=== PATIENT | male | born 1940 | race Caucasian/White ===

== ENCOUNTER 2019-04-26 13:20 | Inpatient (IN) | payer MEDICARE, OTHER ==
[~2019-04-26] VITALS: Ht 177.8 cm; Wt 130.4 kg
[2019-04-26] MEDS ORDERED: ALLO100 PO (14:22)
[2019-04-26] MEDS ORDERED: AMLO5 PO (14:23)
[2019-04-26] MEDS ORDERED: FURO80 PO (14:23)
[2019-04-26] MEDS ORDERED: Glucose4 GM PO (14:24)
[2019-04-26] MEDS ORDERED: INSULANPEN SC (14:25)
[2019-04-26] MEDS ORDERED: LOSARTAN POTASS50 MG PO (14:25)
[2019-04-26] MEDS ORDERED: Xalatan2.5 ML RIGHTEYE (14:25)
[2019-04-26] MEDS ORDERED: METO2.5 PO (14:26)
[2019-04-26] MEDS ORDERED: METO25 PO (14:26)
[2019-04-26] MEDS ORDERED: OMEPRAZOLE MAGN20 MG PO (14:27)
[2019-04-26] MEDS ORDERED: Zocor20 MG PO (14:27)
[2019-04-26] MEDS ORDERED: WARF5 PO (14:28)
[2019-04-26 15:48] LABS: Prothrombin Time Results 38.1 Sec (9.7-11.5)
[2019-04-26 16:02] LABS: International Normalized Ratio 4.08
--- NOTE | 2019-04-26 17:58 | NUR ---
SHIFT SUMMARY PT WAS BROUGHT FROM ER BY [facility] AROUND 1600. PT HAS A R BELOW THE KNEE AMPUTATION, REDNESS AND OPEN WOUNDS ON L LOWER LEG (PICS IN CHART). HE IS CALM AND COOPERATIVE. HE IS A[place] AND HAS NO TEETH BUT PT STATES HE CAN EAT ANYTHING. HAS HIS WHEELCHAIR IN THE CAR. PT STATES NO CHEST PAIN AT THIS TIME. WILL CONTINUE TO MONITOR.
--- NOTE | 2019-04-27 04:21 | NUR ---
SHIFT SUMMARY PT AWAKE, SITTING UP, HF DURING SHIFT REPORT; FAMILY IN RM AT BS. PLEASANT AND CO-OP. NO C/O. [facility]. HX OF A-FIB WITH BBB, ON TELE, HTN, AND IDDM WITH RBKA. REPEAT TROPONIN ONLY SLIGHTLY INCREASED FROM PREVIOUS RESULT. NO C/O PAIN. USES HOME CPAP AT HS WITH 2L O2 AT HS ONLY. PT CAN PIVOT TX FROM BED TO W/C, BUT PAINFUL TO L KNEE; "BONE ON BONE", PER REPORT. LUNGS T/O CTA, BUT DIMINISHED WITH SHALLOW AIR MOVEMENT. PT MORBIDLY OBESE. LLE WITH REDNESS. PICTURES AND MEPILEX PLACED BY DAY RN. COUMADIN HELD YESTERDAY D/T INR 4.08; PT AWARE. CONTINUED TO DENY NEEDS. CALL LT IN REACH. URINAL AT BS. ABLE TO MAKE NEEDS KNOWN.
[2019-04-27 05:45] LABS: Prothrombin Time Results 38.1 Sec (9.7-11.5)
[2019-04-27 06:08] LABS: International Normalized Ratio 4.08
--- NOTE | 2019-04-27 17:24 | NUR ---
SUMMARY PT RESTING QUIETLY IN BED, WAKES EASILY, PT HAD FAMILY IN TO VISIT FOR MOST OF THE DAY, PT HAD THE FIRST PART OF HIS STRESS TEST TODAY, PROMISE WELL, 2ND PART WILL BE TOMORROW, NO CAFFEINE OR CHOCOLATE, VSS, NO ACUTE CHANGES, WILL CONT TO MONITOR
[2019-04-28 05:09] LABS: Hematocrit 39.3 % (37.0-53.0); Mean Corpuscular HGB 33.2 pg (26.0-34.0); Mean Corpuscular HGB Conc 33.1 g/dL (31.5-36.5); Mean Corpuscular Volume 100 fL (80-100); Mean Platelet Volume 12.3 fL (9.1-12.4); Platelet Count 105 K/mm3 (150-400); RDW Coefficient Variation 14.3 % (11.7-14.2); RDW Standard Deviation 52.4 fL (35.1-46.3); Red Blood Cell Count 3.92 M/mm3 (4.30-5.90); White Blood Cell Count 13.78 K/mm3 (4.00-11.30)
[2019-04-28 05:19] LABS: International Normalized Ratio 2.62; Prothrombin Time Results 25.4 Sec (9.7-11.5)
--- NOTE | 2019-04-28 05:36 | NUR ---
SHIFT SUMMARY: TONY IS AOX3, COOPERATIVE AND PLEASANT. VS WNL, ON CONTINUOUS PULSE OX RANGING IN 92-94% WHILE AWAKE, DOES DROP TO LOW 80'S DURING SLEEP. SUPPOSE TO WHERE HIS CPAP BUT HE CONTINUED TO REMOVE IT ALL NIGHT, STATES HE DOES NOT LIKE IT. NC AT 2L WAS PLACED WHICH DID HELP HIM KEEP HIS OXYGEN LEVELS UP. CHEM BG 257. LUNG SOUNDS WITH EXPIRTORY WHEEZES, BRONICAL MOIST RATTLING BUT UNABLE TO COUGH SECREATIONS OUT. HR PER TELE MONITOR RUNNING IN THE HIGH 60'S WITH AFIB AND RIGHT BUNDLE BRANCH BLOCK. NPO AFTER MIDNIGHT FOR THE 2 PORTION OF HIS STRESS TEST. HE WAS ABLE TO TRANSFER WITH 2 PERSON ASSIST TO THE BESIDE COMMODE PIVIOTING ON HIS LEFT LEG. BM NOTED TONIGHT, GOOD YELLOW URINE OUTPUT ALSO NOTED. WOUNDS NOTED TO THE LEFT KHANNA X 2 BOTH VENOUS ULCERS BLISTERS THAT RUPTURED AND NOW HAVE SHALLOW RED OPEN AREAS. VASCULAR CHANGED NOTED TO SKIN AREA, AND REPORTS NUMBNESS.DRESSINGS WAS JUST CHANGED, LIFTED TO CHECK WOUNDS AND REAPPLIED. ALSO HAS SKIN BREAKDOWN IN THE SKIN FOLDS, CLEANSED AND APPLIED NYSTATIN POWDER. IV REMAINED PATENT ALL NIGHT. EDUCATED ON WOUND CARE, SKIN CARE, RESPIRTORY EXERCISES, IMPORTANCE OF CPAP AND PREVENTION MEASURES, ALSO COMMUNITY RESOURCES. MENTIONED TO HIM ABOUT HOME HEALTH AND HE STATES HE PLANS ON GETTING IT WHEN HE DISCHARGES. WILL PASS THIS TO DAY SHIFT RN.
[2019-04-28 06:02] LABS: Bun/Creatinine Ratio 35.5 (12.0-20.0); Calcium, Blood 8.5 mg/dL (8.5-10.1); Creatinine, Blood 3.1 mg/dL (0.60-1.20); Potassium, Blood 3.8 mmol/L (3.5-5.5)
--- NOTE | 2019-04-28 17:41 | NUR ---
SUMMARY PT SITTING UP IN BED EATING DINNER, PT HAD FAMILY IN TO VISIT FOR MOST OF THE DAY, PT HAS BEEN PLEASANT AND COOPERATIVE, PT HAD THE 2ND PORTION OF THE STRESS TEST TODAY, TOLERATED WELL, AWAITING RESULTS AND PLAN, PT HOPEFUL TO GO HOME IN AM, PT'S SPOUSE HAD INDICATED INABILITY TO CARE FOR SPOUSE AT HOME IF HE DID NOT GET HIS STRENGTH BACK, WILL CONT TO MONITOR
[2019-04-29 05:01] LABS: International Normalized Ratio 2.46
--- NOTE | 2019-04-29 05:27 | NUR ---
multiple rt therapy sessions, LS remain crackly and diminished, call light in reach, saline locked, 2L via nc to keep o2 level above 90 when not using cpap and trying to sleep, saline locked, will continue to monitior and treat until SBAR report provided to day shift
--- NOTE | 2019-04-29 18:17 | NUR ---
SHIFT SUMAMRY: NO ACUTE CHANGES TO REPORT THIS SHIFT. PT A&O; CALM AND COOPERATIVE WITH CARE. NO C/O PAIN THIS SHIFT. HX R BKA; PT WHEELCHAIR BOUND AT BASELINE. TELE IN PLACE; AIB c BBB & PVCs @ 64 PER WASTE SPECIALIST; CARDIOLOGY (DR DELGADO) CONSULTED THIS SHIFT. PT HX CKD; NEPHROLOGY (DR KING) CONSULTED THIS SHIFT. WCTM.
[2019-04-30 05:06] LABS: Hematocrit 37.7 % (37.0-53.0); Hemoglobin 12.3 g/dL (13.5-17.5)
[2019-04-30 05:19] LABS: International Normalized Ratio 2.9; Prothrombin Time Results 27.9 Sec (9.7-11.5)
[2019-04-30 05:20] LABS: Albumin, Blood 2.8 g/dL (3.4-5.0); Anion Gap 10 mmol/L (6-16); Blood Urea Nitrogen 135 mg/dL (8-24); Bun/Creatinine Ratio 42.1 (12.0-20.0); CO2, Blood 26 mmol/L (21-32); Calcium, Blood 8.2 mg/dL (8.5-10.1); Chloride, Blood 101 mmol/L (98-108); Creatinine, Blood 3.21 mg/dL (0.60-1.20); Glomerular Filtration Rate 20 (60-); Glucose, Blood 232 mg/dL (70-99); Phosphorus, Blood 4.5 mg/dL (2.5-4.9); Potassium, Blood 3.8 mmol/L (3.5-5.5); Sodium, Blood 137 mmol/L (136-145)
--- NOTE | 2019-04-30 06:39 | NUR ---
a+o, destates if o2 is not running even when at rest, call light in reach, 2L via nc or cpap, saline locked, will continue to monitor and treat until provide SBAR report to returning day shift
--- NOTE | 2019-04-30 19:29 | NUR ---
SHIFT SUMMARY: NO ACUTE CHANGES TO [id number] THIS SHIFT. PT A&O; CALM AND COOPERATIVE WITH CARE. NO C/O PAIN OR NAUSEA THIS SHIFT. CKD STAGE 4; DR KING FOLLOWING PT & OT EVAL & TREAT ORDERED. WCTM.
--- NOTE | 2019-05-01 05:11 | NUR ---
TOBACCO PACKER SUMMARY NO ACUTE CHANGES THIS SHIFT. PT AAOX4 AND VERY PLEASANT. REMAINS ON 2L O2 VIA NC. LUNGS REMAIN A BIT WHEEZY BUT PT STATES HIS BREATHING "IS FEELING A BIT BETTER". USES CPAP AT NIGHT. O2 SATS IN MID 90'S. TELEMETRY SHOWS AFIB 60-70'S ON AVERAGE. PT USING URINAL AT BEDSIDE, COLLECTING FOR 24 HOUR URINE SAMPLE. VSS, WILL CONTINUE TO MONITOR.
[2019-05-01 05:43] LABS: Hematocrit 35.3 % (37.0-53.0); Hemoglobin 11.8 g/dL (13.5-17.5)
[2019-05-01 05:57] LABS: International Normalized Ratio 3.45; Prothrombin Time Results 32.7 Sec (9.7-11.5)
[2019-05-01 06:03] LABS: Albumin, Blood 2.8 g/dL (3.4-5.0); Anion Gap 8 mmol/L (6-16); Blood Urea Nitrogen 137 mg/dL (8-24); Bun/Creatinine Ratio 45.4 (12.0-20.0); CO2, Blood 27 mmol/L (21-32); Calcium, Blood 8.2 mg/dL (8.5-10.1); Chloride, Blood 103 mmol/L (98-108); Creatinine, Blood 3.02 mg/dL (0.60-1.20); Glomerular Filtration Rate 21 (60-); Glucose, Blood 154 mg/dL (70-99); Magnesium, Blood 1.8 mg/dL (1.6-2.4); Phosphorus, Blood 4.2 mg/dL (2.5-4.9); Potassium, Blood 3.5 mmol/L (3.5-5.5); Sodium, Blood 138 mmol/L (136-145)
[2019-05-01 12:59] LABS: Protein, Urine Quantitative 10.4 mg/dL (0.0-11.9)
--- NOTE | 2019-05-01 17:23 | NUR ---
SHIFT SUMMARY PT WORKED WITH P.T. TODAY. NOTED TO BE UNSTEADY WITH TRANSFERS AND SNF TRANSFER RECOMMENDED. PT AGREEABLE AT THIS TIME. FAMILY AT BEDSIDE THIS MORNING WELL WITH PET DOG BROUGHT IN. PT HAS DENIED PAIN OR SOB THROUGH DAY. HAS BEEN ON RA AND CONTINUOUS OXIMETRY NOT BEEPING. USING URINAL WHEN IN BED. NO ACUTE CHANGE THROUGH DAY.
[2019-05-02 05:35] LABS: International Normalized Ratio 3.87; Prothrombin Time Results 36.3 Sec (9.7-11.5)
--- NOTE | 2019-05-02 05:40 | NUR ---
SUMMARY: PT A/OX4, DENIES COMPLAINTS AND CALLS APPROPRIATELY FOR ASSIST. HE HAS A R.BKA SO IS CHAIRBOUND AND IS WEAKER THEN BASELINE. PT AGREES TO SNF UPON D/C AND T/F ASSIST REQUIRED TO BED AND W/C BUT TYPICALLY CAN DO SO INDEPENDENTLY. PT TOLERATES CPAP AT HS W/2L 02 BLEED IN AND BUT REMOVES IT AT TIMES WHILE ASLEEP SO WOULD DESAT TO 80'S% PER CONT BIOX. HE ALSO HAS KNOWN AFIB W/HR OCCASIONALLY DROPPING TO 50'S PER BIOX, NO S/S CARDIAC DISTRESS. PT USES URINAL INDEPENDENTLY. DX TO L.LEG REMAINS C/D/I AND NYSTATIN APPLIED TO YEAST IN PANUS/GROIN. NO ACUTE CHANGES, VSS/AFEBRILE. WCTM/REPORT TO DAY RN.
[2019-05-02 07:17] LABS: Albumin, Blood 2.7 g/dL (3.4-5.0); Anion Gap 9 mmol/L (6-16); Blood Urea Nitrogen 138 mg/dL (8-24); Bun/Creatinine Ratio 49.1 (12.0-20.0); CO2, Blood 25 mmol/L (21-32); Calcium, Blood 8.3 mg/dL (8.5-10.1); Chloride, Blood 107 mmol/L (98-108); Creatinine, Blood 2.81 mg/dL (0.60-1.20); Glomerular Filtration Rate 23 (60-); Glucose, Blood 112 mg/dL (70-99); Phosphorus, Blood 4.1 mg/dL (2.5-4.9); Potassium, Blood 3.6 mmol/L (3.5-5.5); Sodium, Blood 141 mmol/L (136-145)
--- NOTE | 2019-05-02 08:59 | NUR ---
NEIGHBORHOOD PLANNER FROM .. IN TO SEE PT.
--- NOTE | 2019-05-02 15:37 | NUR ---
REPORT CALLED TO ALESHA AT [facility], AWAITING [facility] TRANSPORT AT AROUND [id number]. SPOUSE AND DAUGHTER IN ROOM WITH PT AND NOTIFIED.
--- NOTE | 2019-05-02 16:40 | NUR ---
PT DC'D TO [facility]. VIA [facility] AT [phone].
[2019-05-03 07:12] LABS: ANTIGLOMERULAR BM AB 3 units (0-20)
[2019-05-03 12:06] LABS: M-SPIKE, % Not Observed % (Not Observed); PROTEIN,TOTAL,URINE 6.4 mg/dL (Not Estab.)
[2019-05-03 16:06] LABS: A/G RATIO 1.1 (0.7-1.7); ALBUMIN 2.8 g/dL (2.9-4.4); ALPHA-1-GLOBULIN 0.3 g/dL (0.0-0.4); ALPHA-2-GLOBULIN 0.7 g/dL (0.4-1.0); BETA GLOBULIN 0.7 g/dL (0.7-1.3); GAMMA GLOBULIN 0.9 g/dL (0.4-1.8); GLOBULIN, TOTAL 2.7 g/dL (2.2-3.9); IMMUNOGLOBULIN A, QN, SERUM 178 mg/dL (61-437); IMMUNOGLOBULIN G, QN, SERUM 830 mg/dL (700-1600); IMMUNOGLOBULIN M, QN, SERUM 28 mg/dL (15-143); M-SPIKE Not Observed g/dL (Not Observed); PROTEIN, TOTAL, SERUM 5.5 g/dL (6.0-8.5)
[2019-05-05 16:07] LABS: ANA DIRECT Negative (Negative); ANTIMYELOPEROXIDASE (MPO) ABS <9.0 U/mL (0.0-9.0); ANTIPROTEINASE 3 (PR-3) ABS <3.5 U/mL (0.0-3.5); ATYPICAL PANCA <1:20 titer ({null, Neg:<1:20}); CYTOPLASMIC (C-ANCA) <1:20 titer ({null, Neg:<1:20}); PERINUCLEAR (P-ANCA) <1:20 titer ({null, Neg:<1:20})
== END 2019-05-02 16:36 | DRG 280 ==
LOC: ER 13:20 → MEDS 13:21
PROVIDERS: Internal Medicine Nephrology; ADMIT Internal Medicine
DX: I21.A1 Myocardial infarction type 2 (principal); N17.0 Acute kidney failure with tubular necrosis; N18.3 Chronic kidney disease, stage 3 (moderate); I12.9 Hypertensive chronic kidney disease with stage 1 through stage 4 chronic kidney disease, or unspecified chronic kidney disease; E11.22 Type 2 diabetes mellitus with diabetic chronic kidney disease; Z79.01 Long term (current) use of anticoagulants; G47.33 Obstructive sleep apnea (adult) (pediatric); Z89.511 Acquired absence of right leg below knee; I45.10 Unspecified right bundle-branch block; I25.10 Atherosclerotic heart disease of native coronary artery without angina pectoris; I48.2 Chronic atrial fibrillation; Z99.3 Dependence on wheelchair; E11.649 Type 2 diabetes mellitus with hypoglycemia without coma
CPT/HCPCS: 36415; 71046; 76770; 78452; 80048; 80069; 81050; 82784; 82947; 83516; 83520; 83735; 84156; 84165; 84166; 84484; 85014; 85018; 85027; 85610; 86038; 86256; 86334; 86335; 93005; 93010; 93017; 94640; 94660; 94762; 97161; 97165; 97530; 99285-25; A9500; G0378; J0706; J2785; J7030

== ENCOUNTER 2020-01-30 06:24 | Day surgery (SDC) | payer MEDICARE, OTHER ==
[~2020-01-30] VITALS: Ht 182.9 cm; Wt 119.0 kg
[~2020-01-30 06:24] MED LIST: ALLO100 PO; AMLO5 PO; CALCIUM 600 +1 EAC8 PO; FOLI1 PO; FURO80 PO; Glucose4 GM PO; INSULANPEN SC; LOSARTAN POTASS50 MG PO; METO2.5 PO; METO25 PO; OMEPRAZOLE MAGN20 MG PO; WARF5 PO; Xalatan2.5 ML RIGHTEYE; Zocor20 MG PO
--- NOTE | 2020-01-30 13:49 | NUR ---
DISCHARGE: PT REMAINED A&OX3 AND DENIED ANY PAIN DURING RECOVERY. SITE BANDAGE CHANGED DUE TO A LITTLE BLOOD NOTED. SITE DIME SIZE AMOUNT OF BLOOD NOTED-NO HEMATOMA NOTED UNCHANGED FROM DRESSING CHANGE. VSS. IV DC'D WITH CANULA IN TACT. DISCHARGE PAPERWORK GONE OVER WITH PT AND SPOUSE. PT AND SPOUSE VERBALY STATED THE UNDERSTANDING OF THE DISCHARGE EDUCAITON AND DENIED ANY QUESTIONS AT THIS TIME. PT REQUIRED HELP WITH DRESSING AND TRANSFERED SELF TO WHEELCHAIR. PT WHEELED OUT BY THIS NURSE.
== END 2020-01-30 14:00 | disposition home or self-care (01) ==
LOC: MHTC 06:24
DX: I70.249 Atherosclerosis of native arteries of left leg with ulceration of unspecified site (principal); L97.929 Non-pressure chronic ulcer of unspecified part of left lower leg with unspecified severity; Z88.8 Allergy status to other drugs, medicaments and biological substances
CPT/HCPCS: 37224; 37228; 75625; 75716; 75774; 82947; 85347; 99152; 99153; C1725; C1760; C1769; C1887; C1894; C2623; J1644; J2250; J3010; J7030; J7042; Q9967

== ENCOUNTER 2021-09-25 14:59 | Inpatient (IN) | payer OTHER ==
[~2021-09-25] VITALS: Ht 180.3 cm; Wt 123.0 kg
[~2021-09-25 14:59] MED LIST changes: +LOSA25 PO; -LOSARTAN POTASS50 MG PO
[2021-09-25 15:40] LABS: Hematocrit 37.8 % (37.0-53.0); Hemoglobin 12.2 g/dL (13.5-17.5); Mean Corpuscular HGB 30.3 pg (26.0-34.0); Mean Corpuscular HGB Conc 32.3 g/dL (31.5-36.5); Mean Corpuscular Volume 94 fL (80-100); Platelet Count 141 K/mm3 (150-400); RDW Coefficient Variation 14.9 % (11.7-14.2); RDW Standard Deviation 51.4 fL (35.1-46.3); Red Blood Cell Count 4.02 M/mm3 (4.30-5.90); White Blood Cell Count 14.54 K/mm3 (4.00-11.30)
[2021-09-25 16:04] LABS: Albumin/Globulin Ratio 0.9 (0.8-1.8); Bilirubin, Total 1.1 mg/dL (0.1-1.0); Bun/Creatinine Ratio 33.7 (12.0-20.0); Calcium, Blood 9.5 mg/dL (8.5-10.1); Creatinine, Blood 4.15 mg/dL (0.60-1.20); Globulin, Blood 3.4 g/dL (2.2-4.0); Potassium, Blood 4.8 mmol/L (3.5-5.5); Total Protein, Blood 6.4 g/dL (6.4-8.2)
[2021-09-25] MEDS ORDERED: CALC.25 PO (16:20)
[2021-09-25] MEDS ORDERED: ALOGLIPTIN6.25 M1 PO (16:22)
[2021-09-25] MEDS ORDERED: MEGE40T PO (16:23)
[2021-09-25] MEDS ORDERED: ELIQUIS2.5 MG PO (16:24)
[2021-09-25 16:29] LABS: BASOPHILS PERCENT MAN 0 % (0-2); EOSINOPHILS ABSOLUTE MAN 0.14 K/mm3 (0.00-0.68); EOSINOPHILS PERCENT MAN 1 % (0-6); LYMPHOCYTES % ATYPICAL MANUAL 1 % (0-0); LYMPHOCYTES ABSOLUTE MAN 5.08 K/mm3 (0.84-5.20); LYMPHOCYTES PERCENT MAN 34 % (21-46); MONOCYTES ABSOLUTE MAN 1.01 K/mm3 (0.16-1.47); MONOCYTES PERCENT MAN 7 % (4-13); NEUTROPHILS ABSOLUTE MAN 8.28 K/mm3 (1.96-9.15); SEG NEUTROPHILS PERCENT MAN 57 % (41-73); TOTAL CELLS COUNTED 100
[2021-09-25 17:14] LABS: Influenza A, PCR NEGATIVE (NEGATIVE); Influenza B, PCR NEGATIVE (NEGATIVE); Resp Syncytial Virus, PCR NEGATIVE (NEGATIVE); SARS-Cov-2 (COVID-19) PCR, MMC NEGATIVE (NEGATIVE)
[2021-09-25] MEDS ORDERED: MEGESTROL400 MG/11 PO (17:24)
[2021-09-25] MEDS ORDERED: Hydrocortiso453.6 G1 TOP (17:54)
[2021-09-25] MEDS ORDERED: NYSTATIN15 GM TOP (17:55)
[2021-09-25] MEDS ORDERED: TRIDERM28.4 GM TOP (17:56)
--- NOTE | 2021-09-25 18:42 | NUR ---
SHIFT SUMMARY PT WAS ADMITTED FROM ED AROUND 1814. RM AIR, NO TELE, CHELITA PAIN OR SOB. COMFORTABLE IN RM. PT IS CHAIRBOUND AND TRANSFERS USING A SLING. HE IS ARIGHT SIDED AMPUTEE FROM MID CALF DOWN. WILL CALL AND DISCUSS HOME MEDS AND WOUND CLINIC VISIT FOR LEFT CALF WOUNDS. WILL CONTINUE TO MONITOR
[2021-09-26 05:05] LABS: Hematocrit 36.4 % (37.0-53.0); Hemoglobin 11.7 g/dL (13.5-17.5)
[2021-09-26 05:30] LABS: Albumin, Blood 2.7 g/dL (3.4-5.0); Anion Gap 8 mmol/L (6-16); Blood Urea Nitrogen 140 mg/dL (8-24); Bun/Creatinine Ratio 34.3 (12.0-20.0); CO2, Blood 20 mmol/L (21-32); Calcium, Blood 9.3 mg/dL (8.5-10.1); Chloride, Blood 113 mmol/L (98-108); Creatinine, Blood 4.08 mg/dL (0.60-1.20); Glomerular Filtration Rate 14 (60-); Glucose, Blood 89 mg/dL (70-99); Phosphorus, Blood 4.3 mg/dL (2.5-4.9); Sodium, Blood 141 mmol/L (136-145)
--- NOTE | 2021-09-26 17:05 | NUR ---
SHIFT SUMMARY PATIENT ALERT AND ORIENTED THIS SHIFT. PATIENT CALM AND COOPERATIVE WITH CARE. PATIENT DOWN FOR DIALYSIS CATHETER PLACEMENT EARLY THIS AFTERNOON. PATIENT ALERT UPON ARRIVAL. PATIENT COUGHING APPROXIMATELY 1/2 HOUR AFTER ARRIVAL BACK TO FLOOR. STITCH AT SECONDARY SITE STARTED BLEEDING, PRESSURE APPLIED AND BLEEDING QUICKLY CEASED. PATIENT IS CURRENTLY SLEEPING WITH PLANS FOR DIALYSIS THIS EVENING.
--- NOTE | 2021-09-26 23:13 | NUR ---
CONFUSION PT FOUND c IV ACCESS REMOVED, SMALL AMT OF BLOOD ON HAND AND SHEETS. DRESSING ALSO REMOVED FROM PERMACATH. PT STATING THAT SOMETHING FISHY WAS GOING ON AND HE HAD TO GET EVEERYTHING OUT. PT REORIENTED AND CLEANED UP. FIRE SPRINKLER INSTALLER NOTIFIED TO COME CHECK CONDITION OF PERMACATH. NO ACTIVE BLEEDING AT THIS TIME. WILL CONTINUE TO MONITOR AND EDUCATE PT REGARDING PERMACATH.
[2021-09-27 05:14] LABS: BASOPHILS ABSOLUTE AUTO 0.03 K/mm3 (0.00-0.23); BASOPHILS PERCENT AUTO 0 % (0-2); EOSINOPHILS ABSOLUTE AUTO 0.18 K/mm3 (0.00-0.68); EOSINOPHILS PERCENT AUTO 2 % (0-6); Hemoglobin 11.9 g/dL (13.5-17.5); IMMATURE GRAN ABSOLUTE AUTO 0.04 K/mm3 (0.00-0.10); IMMATURE GRAN PERCENT AUTO 0 % (0-1); LYMPHOCYTES ABSOLUTE AUTO 4.72 K/mm3 (0.84-5.20); LYMPHOCYTES PERCENT AUTO 39 % (21-46); MONOCYTES ABSOLUTE AUTO 1.27 K/mm3 (0.16-1.47); MONOCYTES PERCENT AUTO 11 % (4-13); Mean Corpuscular HGB 30.5 pg (26.0-34.0); Mean Corpuscular HGB Conc 32.2 g/dL (31.5-36.5); Mean Corpuscular Volume 95 fL (80-100); Mean Platelet Volume 11.8 fL (9.1-12.4); NEUTROPHILS ABSOLUTE AUTO 5.85 K/mm3 (1.96-9.15); NEUTROPHILS PERCENT AUTO 49 % (41-73); Platelet Count 131 K/mm3 (150-400); RDW Coefficient Variation 15.2 % (11.7-14.2); RDW Standard Deviation 51.8 fL (35.1-46.3); White Blood Cell Count 12.09 K/mm3 (4.00-11.30)
[2021-09-27 05:26] LABS: Albumin, Blood 2.7 g/dL (3.4-5.0); Anion Gap 9 mmol/L (6-16); Blood Urea Nitrogen 104 mg/dL (8-24); Bun/Creatinine Ratio 31.1 (12.0-20.0); CO2, Blood 23 mmol/L (21-32); Calcium, Blood 9.3 mg/dL (8.5-10.1); Chloride, Blood 111 mmol/L (98-108); Creatinine, Blood 3.34 mg/dL (0.60-1.20); Glomerular Filtration Rate 18 (60-); Glucose, Blood 90 mg/dL (70-99); Magnesium, Blood 1.9 mg/dL (1.6-2.4); Phosphorus, Blood 4.1 mg/dL (2.5-4.9); Potassium, Blood 4.5 mmol/L (3.5-5.5); Sodium, Blood 143 mmol/L (136-145); Troponin I 0.205 ng/mL (0.000-0.040)
--- NOTE | 2021-09-27 06:29 | NUR ---
SHIFT SUMMARY S/P ESRD, A/O X4 THOUGH PT HAD PERIOD OF DISORIENTATION WHEN HE WOKE UP AFTER DIALYSIS JUST AFTER START OF SHIFT, PT PULLED OUT IV ACCESS AND ATTEMPTED TO PULL OUT PERMACATH. PERMACATH WAS EVALUATED BY MILL SUPERVISOR AND REDRESSED, PT EDUCATED ON THE IMPORTANCE OF NOT DOING ANYTHING WITH HIS PERMACATH WHICH WAS JUST PUT IN YESTERDAY DURING DAY SHIFT. PT HAS BEEN A/O SINCE THAT EVENT, VOIDING, 1 BM THIS SHIFT, DENIES PAIN. NO OTHER EVENTS THIS SHIFT. CALL LIGHT IN REACH, WILL CTM AND REPORT TO DAY RN.
[2021-09-27 09:10] LABS: HBSAG SCREEN Negative (Negative); HEP A AB, IGM Negative (Negative); HEP B CORE AB, IGM Negative (Negative); HEP C VIRUS AB <0.1 (0.0-0.9)
--- NOTE | 2021-09-27 16:34 | NUR ---
SHIFT SUMMARY PATIENT DENIES PAIN, NAUSEA, AND SHORTNESS OF BREATH. PATIENT HAD DIALYSIS THIS MORNING. BUMEX ORDER CHANGED PER DR. KING TO 2MG PO ON NON-DIALYSIS DAYS. NEW IV PLACED IN RIGHT WRIST. PATIENT VISITED IN AFTERNOON. PATIENT HAS HAD NO EPISODES OF CONFUSION THIS SHIFT. PATIENT IS EATING AND DRINKING WELL. PATIENT IS PLEASANT AND COOPERATIVE WITH CARE.
[2021-09-28 04:59] LABS: BASOPHILS ABSOLUTE AUTO 0.03 K/mm3 (0.00-0.23); BASOPHILS PERCENT AUTO 0 % (0-2); EOSINOPHILS ABSOLUTE AUTO 0.19 K/mm3 (0.00-0.68); EOSINOPHILS PERCENT AUTO 2 % (0-6); Hematocrit 36.4 % (37.0-53.0); Hemoglobin 11.9 g/dL (13.5-17.5); IMMATURE GRAN ABSOLUTE AUTO 0.04 K/mm3 (0.00-0.10); IMMATURE GRAN PERCENT AUTO 0 % (0-1); LYMPHOCYTES ABSOLUTE AUTO 4.21 K/mm3 (0.84-5.20); LYMPHOCYTES PERCENT AUTO 35 % (21-46); MONOCYTES ABSOLUTE AUTO 1.45 K/mm3 (0.16-1.47); MONOCYTES PERCENT AUTO 12 % (4-13); Mean Corpuscular HGB 30.6 pg (26.0-34.0); Mean Corpuscular HGB Conc 32.7 g/dL (31.5-36.5); Mean Corpuscular Volume 94 fL (80-100); Mean Platelet Volume 11.5 fL (9.1-12.4); NEUTROPHILS ABSOLUTE AUTO 6.28 K/mm3 (1.96-9.15); NEUTROPHILS PERCENT AUTO 52 % (41-73); Platelet Count 116 K/mm3 (150-400); RDW Coefficient Variation 14.9 % (11.7-14.2); RDW Standard Deviation 51.2 fL (35.1-46.3); Red Blood Cell Count 3.89 M/mm3 (4.30-5.90)
--- NOTE | 2021-09-28 05:25 | NUR ---
SHIFT SUMMARY PT ALERT WITH PERIOD OF CONFUSION LATER ON THE SHIFT. HEMODIALYSIS CATH ON PLACE. NO ACUTE DISTRESS DURING SHIFT.
[2021-09-28 06:38] LABS: Albumin, Blood 2.7 g/dL (3.4-5.0); Anion Gap 7 mmol/L (6-16); Blood Urea Nitrogen 75 mg/dL (8-24); Bun/Creatinine Ratio 24.8 (12.0-20.0); CO2, Blood 26 mmol/L (21-32); Chloride, Blood 106 mmol/L (98-108); Creatinine, Blood 3.02 mg/dL (0.60-1.20); Glomerular Filtration Rate 20 (60-); Glucose, Blood 161 mg/dL (70-99); Magnesium, Blood 1.9 mg/dL (1.6-2.4); Phosphorus, Blood 3.5 mg/dL (2.5-4.9); Sodium, Blood 139 mmol/L (136-145)
--- NOTE | 2021-09-28 18:12 | NUR ---
SHIFT SUMMARY PATIENT DENIES PAIN, NAUSEA, AND SHORTNESS OF BREATH. PATIENT HAD SOME CONFUSION THIS MORNING. PATIENT DID NOT KNOW WHERE HE WAS OR WHY HE WAS HERE. PATIENT WANTED TO GO HOME AND TRIED TO GET OUT OF BED. PATIENT REORIENTED TO SITUATION. PATIENT CONFUSION RESOLVED BY MID-AFTERNOON. PATIENT IS A LIFT TRANSFER. PATIENT CBG AT 1630 WAS 73. JUICE WAS GIVEN. PATIENT IS EATING AND DRINKING WELL. PATIENT IS PLEASANT AND COOPERATIVE WITH CARE.
--- NOTE | 2021-09-29 04:43 | NUR ---
SHIFT SUMMARY PT ALERT WITH PERIOD OF CONFUSION. RESTING ON BED. DID NOT TRY TO GET OUT OF BED. DO NOT COMPLAIN OF ANY PAIN. CALL LIGHT WHITIM REACH. KEEP MONITORING
[2021-09-29 05:08] LABS: BASOPHILS ABSOLUTE AUTO 0.03 K/mm3 (0.00-0.23); BASOPHILS PERCENT AUTO 0 % (0-2); EOSINOPHILS ABSOLUTE AUTO 0.18 K/mm3 (0.00-0.68); EOSINOPHILS PERCENT AUTO 1 % (0-6); Hematocrit 39.1 % (37.0-53.0); Hemoglobin 12.4 g/dL (13.5-17.5); Mean Corpuscular HGB 30.2 pg (26.0-34.0); Mean Corpuscular HGB Conc 31.7 g/dL (31.5-36.5); Mean Corpuscular Volume 95 fL (80-100); Mean Platelet Volume 11.9 fL (9.1-12.4); Platelet Count 118 K/mm3 (150-400); RDW Coefficient Variation 15.1 % (11.7-14.2); RDW Standard Deviation 51.8 fL (35.1-46.3); Red Blood Cell Count 4.11 M/mm3 (4.30-5.90); White Blood Cell Count 13.61 K/mm3 (4.00-11.30)
[2021-09-29 05:27] LABS: IMMATURE GRAN ABSOLUTE AUTO 0.05 K/mm3 (0.00-0.10); IMMATURE GRAN PERCENT AUTO 0 % (0-1); LYMPHOCYTES PERCENT AUTO 36 % (21-46); MONOCYTES ABSOLUTE AUTO 1.44 K/mm3 (0.16-1.47); MONOCYTES PERCENT AUTO 11 % (4-13); NEUTROPHILS ABSOLUTE AUTO 7.01 K/mm3 (1.96-9.15); NEUTROPHILS PERCENT AUTO 52 % (41-73)
[2021-09-29 05:50] LABS: Albumin, Blood 2.8 g/dL (3.4-5.0); Anion Gap 7 mmol/L (6-16); Blood Urea Nitrogen 80 mg/dL (8-24); Bun/Creatinine Ratio 24.5 (12.0-20.0); CO2, Blood 27 mmol/L (21-32); Calcium, Blood 9.4 mg/dL (8.5-10.1); Chloride, Blood 107 mmol/L (98-108); Creatinine, Blood 3.27 mg/dL (0.60-1.20); Glomerular Filtration Rate 18 (60-); Glucose, Blood 78 mg/dL (70-99); Magnesium, Blood 1.8 mg/dL (1.6-2.4); Phosphorus, Blood 3.6 mg/dL (2.5-4.9); Potassium, Blood 3.9 mmol/L (3.5-5.5); Sodium, Blood 141 mmol/L (136-145); Thyroid Stimulating Hormone 0.616 uIU/mL (0.360-4.800)
[2021-09-29 06:06] LABS: BASOPHILS PERCENT MAN 0 % (0-2); EOSINOPHILS PERCENT MAN 3 % (0-6); LYMPHOCYTES ABSOLUTE MAN 3.94 K/mm3 (0.84-5.20); LYMPHOCYTES PERCENT MAN 29 % (21-46); MONOCYTES ABSOLUTE MAN 1.22 K/mm3 (0.16-1.47); MONOCYTES PERCENT MAN 9 % (4-13); NEUTROPHILS ABSOLUTE MAN 8.02 K/mm3 (1.96-9.15); SEG NEUTROPHILS PERCENT MAN 59 % (41-73); TOTAL CELLS COUNTED 100
--- NOTE | 2021-09-29 15:33 | NUR ---
Upon receiving a referral for spiritual care, I visit patient. Patient tells me about his medical issues, his family history (son and daughter and exwife he is estranged from) and his [employer] background. patient then had to use the restroom and so I exited. I will continue to attempt to connect with patient at a later time.
--- NOTE | 2021-09-29 17:50 | NUR ---
SHIFT SUMMARY PATIENT IS ALERT AND ORIENTED X3 MILD FORGETFULNESS, AND COOPERATIVE WITH CARE. PATIENT IS ON RA, HAS A RIGHT BKA, AND IS CONTINENT. PATIENT DOES NOT WANT TO BE A BOTHER, THIS NURSE HAS BEEN CHECKING ON THEM AND BRINGING SNACKS. PATIENT HAS A PERMA CATH IN THE RIGHT UPPER CHEST, HAD DIALYSIS THIS AM. PATIENT'S DRESSINGS WERE CHANGED ON THE LEFT LOWER EXTREMITY. PATIENT IS GETTING COVERAGE FOR INSULIN PER SLIDING SCALE THIS EVENING. NO ACUTE CHANGES THIS SHIFT. WILL CONTINUE TO CARE FOR UNTIL REPORT IS GIVEN TO ONCOMING NURSE.
--- NOTE | 2021-09-29 22:39 | NUR ---
AWAKE, VOICED FATIGUE AT HS. TOLERATED MEDS WELL. A/O X 3-4. CALL LIGHT IN REACH
--- NOTE | 2021-09-30 03:10 | NUR ---
STUCCO APPLICATOR SUMMARY HAS BEEN RESTING QUIETLY WITH FEW INTERRUPTIONS SINCE HS AFTER HE WAS RE ORIENTED TO NIGHT TIME VS DAY TIME WHEN HE LOOKED AT THE CLOCK AROUND 10 PM. AND THOUGHT IT WAS AM. CALL LIGHT IN REACH. DRESSINGS INTACT.
[2021-09-30 04:57] LABS: Hematocrit 36.9 % (37.0-53.0); Hemoglobin 11.7 g/dL (13.5-17.5)
[2021-09-30 05:22] LABS: Albumin, Blood 2.7 g/dL (3.4-5.0); Anion Gap 4 mmol/L (6-16); Blood Urea Nitrogen 65 mg/dL (8-24); Bun/Creatinine Ratio 21.8 (12.0-20.0); CO2, Blood 29 mmol/L (21-32); Chloride, Blood 108 mmol/L (98-108); Creatinine, Blood 2.98 mg/dL (0.60-1.20); Glomerular Filtration Rate 20 (60-); Glucose, Blood 91 mg/dL (70-99); Phosphorus, Blood 3.3 mg/dL (2.5-4.9); Potassium, Blood 3.8 mmol/L (3.5-5.5); Sodium, Blood 141 mmol/L (136-145)
--- NOTE | 2021-09-30 12:35 | NUR ---
Patient is sitting on his wheelchair by the doorway of patient's . Because therapeutic alliance is already established, patient tells me about the emotional pain attached to some tragic events that happened in his life, about the good qualities of his spouse, his struggles with people who push sabianist and his own spiritual journey. I normalize patient's experience, celebrate his resilience and ability to overcome against the odds and provide companionship and prayer. Patient responds well and shows signs of an elevated mood. I will continue to remain available to patient and family.
--- NOTE | 2021-09-30 19:00 | NUR ---
Pt is A&O 2-3, FORGETFUL AT TIMES. VSS ON RA. UP WITH LIFT TO WHEELCHAIR. INDEPENDENT IN ROOM WITH WHEELCHAIR. WAITING ON DIALYSIS BED. DIETARY SAW PT TODAY AND ADDED SOME PREFERENCES FOR MEAL TRAYS. CBG WAS 55 IN AM AND WENT UP TO 74 AT RECHECK. HAS REMAINED WNL THE REST OF THE DAY.
--- NOTE | 2021-10-01 04:47 | NUR ---
LOG LOADER HELPER SUMMARY HAS BEEN RESTING QUIETLY WITH FEW INTERRUPTIONS SINCE HS AFTER ASSISTANCE BACK TO BED FROM WHEELCAIR. DIALYSIS CONTINUES PER SCHEDULE. AWAITING PLACEMENT. CALL LIGHT IN REACH
--- NOTE | 2021-10-01 10:10 | NUR ---
SEMGLEE: WHEN VERIFYING PATIENT'S SEMGLEE, NOTED THAT HE HAS HAD SOME LOW BLOOD SUGARS OVER HIS ADMISSION WITH THE CURRENT DOSAGE OF SEMGLEE. DISCUSSED WITH DR. CHOWDHURY. NEW ORDERS. ENTERED.
--- NOTE | 2021-10-01 17:29 | NUR ---
PPTS IS IN BED. TOLERATED DIAYSIS WELL, STILL WAITING FOR DAVITA PLACEMENT. DENIES PAIN/ SOB. HE IS HOPEFUL TO DISCHARGE SOON. WILL CONTINUE TO MONITOR.
--- NOTE | 2021-10-02 06:23 | NUR ---
SHIFT SUMMARY PATIENT HAD NO ACUTE CHANGES. AXOX 2-3 FORGETFUL AND SLOW TO RESPOND. BEDREST. CBG 230. PIV INTACT. PERMA CATH RU CHEST INTACT. VSS/AFEBRILE. DENIES CHEST PAIN, SOB, AND N/V. WCTM
[2021-10-02 06:48] LABS: Albumin, Blood 2.7 g/dL (3.4-5.0); Anion Gap 7 mmol/L (6-16); Blood Urea Nitrogen 65 mg/dL (8-24); Bun/Creatinine Ratio 21.3 (12.0-20.0); CO2, Blood 29 mmol/L (21-32); Chloride, Blood 104 mmol/L (98-108); Creatinine, Blood 3.05 mg/dL (0.60-1.20); Glomerular Filtration Rate 20 (60-); Glucose, Blood 158 mg/dL (70-99); Magnesium, Blood 1.9 mg/dL (1.6-2.4); Phosphorus, Blood 3.2 mg/dL (2.5-4.9); Potassium, Blood 3.8 mmol/L (3.5-5.5); Sodium, Blood 140 mmol/L (136-145)
[2021-10-02 06:51] LABS: Hematocrit 37.1 % (37.0-53.0); Hemoglobin 11.7 g/dL (13.5-17.5)
--- NOTE | 2021-10-02 08:00 | NUR ---
PT LAYING IN BED AWAKE A/OX3, PLEASANT AND COOPERATIVE WITH CARE, FOLLOWS COMMANDS WELL, DENIES PAIN, STATES HE SLEPT WELL, SPEECH IS A BIT DIFF TO UNDERSTAND, LUNGS ARE CLEAR T/O, RESP EVEN AND UNLABORED, NO COUGH NOTED, HRR WITH MURMUR NOTED, NO EDEMA NOTED, RBKA, PP +1 TO LLE, IV SITE IS CLEAR AND PATENT, BTX4 HYPOACTIVE, ABD LARGE SOFT NONTENDER, INCONT OF URINE, ATTENDS IN PLACE, SKIN HAS RASH TO RLE, CREAM AVAILABLE, TURNS SELF IN BED, TAKES PO MEDS WITHOUT DIFF, VAMSI, CALL LIGHT IN REACH.
--- NOTE | 2021-10-02 18:32 | NUR ---
no acute changes this shift. no complaints or needs. did speak to respiratory about a cpap set up for him. call light in reach.
--- NOTE | 2021-10-03 04:02 | NUR ---
SHIFT SUMMARY PATIENT HAD NO ACUTE CHANGES OBSERVED. AXOX 3 AND CONFUSED AT TIMES. RIGHT BKA AND BEDREST. PERMA CATH RU CHEST INTACT. VSS/AFEBRILE. DENIES PAIN, SOB, AND N/V. TAKES MEDICATION WHOLE WITH WATER. CBG 197. CALL LIGHT IN REACH. BED IN LOWEST POSITION. WILL CONTINUE TO MONITOR UNTIL DAY SHIFT NURSE ASSUMES CARE.
[2021-10-03 05:27] LABS: Hematocrit 37.6 % (37.0-53.0); Hemoglobin 12.3 g/dL (13.5-17.5)
[2021-10-03 05:49] LABS: Albumin, Blood 2.8 g/dL (3.4-5.0); Anion Gap 6 mmol/L (6-16); Blood Urea Nitrogen 79 mg/dL (8-24); Bun/Creatinine Ratio 23.3 (12.0-20.0); CO2, Blood 29 mmol/L (21-32); Calcium, Blood 9.3 mg/dL (8.5-10.1); Chloride, Blood 105 mmol/L (98-108); Creatinine, Blood 3.39 mg/dL (0.60-1.20); Glomerular Filtration Rate 18 (60-); Glucose, Blood 149 mg/dL (70-99); Phosphorus, Blood 3.7 mg/dL (2.5-4.9); Potassium, Blood 3.9 mmol/L (3.5-5.5); Sodium, Blood 140 mmol/L (136-145)
--- NOTE | 2021-10-03 16:29 | NUR ---
SHIFT SUMMARY PATIENT DENIED PAIN, NAUSEA, AND SHORTNESS OF BREATH. PATIENT HAD SOME CONFUSION THIS MORNING. PATIENT WANTED TO WALK TO DIALYSIS. PATIENT IS CURRENTLY A LIFT TRANSFER. PATIENT HAD DIALYSIS THIS MORNING. FAMILY VISITED IN AFTERNOON. I CALLED RT ABOUT A CPAP FOR PATIENT. PATIENT HAD BEEN UNABLE TO TOLERATE THE MASK. DR. CHOWDHURY NOTIFIED. NEW ORDERS FOR XANAX 1MG PO AT BEDTIME FOR CPAP TOLERANCE. PATIENT IS EATING AND DRINKING WELL. PATIENT IS PLEASANT AND COOPERATIVE WITH CARE.
--- NOTE | 2021-10-04 03:48 | NUR ---
TONY IS PLEASANT AND ALERT. A GOOD HISTORIAN WITH REGARD TO HIS MEDICAL HX WELL DIAGNOSIS. HE IS CONCERNED THAT HE MAY HAVE TO GO OUT OF TOWN TO GET DIALYSIS IF THIS CURRENT SITUATION CANNOT BE RESOLVED. RIGHT CHEST DIALYSIS CATHETER APPEARS INTACT AND NONTENDER. NO COMPLAINTS OF DISCOMFORT OVERNIGHT
[2021-10-04 04:51] LABS: Hematocrit 37.8 % (37.0-53.0)
[2021-10-04 05:11] LABS: Albumin, Blood 2.7 g/dL (3.4-5.0); Anion Gap 6 mmol/L (6-16); Blood Urea Nitrogen 71 mg/dL (8-24); Bun/Creatinine Ratio 23.1 (12.0-20.0); CO2, Blood 29 mmol/L (21-32); Calcium, Blood 9.3 mg/dL (8.5-10.1); Chloride, Blood 107 mmol/L (98-108); Creatinine, Blood 3.07 mg/dL (0.60-1.20); Glomerular Filtration Rate 20 (60-); Glucose, Blood 133 mg/dL (70-99); Phosphorus, Blood 3.6 mg/dL (2.5-4.9); Potassium, Blood 3.9 mmol/L (3.5-5.5); Sodium, Blood 142 mmol/L (136-145)
--- NOTE | 2021-10-04 14:24 | NUR ---
[facility] referral received due to pt's refusal to use his nasal canula or his CPAP. Biox readings in the 80's withput O2 use and pt noted to be confused in the am without CPAP use. Pt uses CPAP at home. Initially pt verbalized that he understood he may have respiratory distress and resp/cardiac failure if saturations cont to drop and or CO2 level increased. Pt responded that he was not wanting to but he was ok if he when asked. arrived and we reviewed the conversation again. Pt cont to state he doesn't want to utilize his CPAP or O2 but eventually he became agreeable to use his O2 while we further discussed his feelings and concerns. He is clear that he wants to continue dialysis. He denies pain or anxiety. He is demonstrating some anxiety and expressing some distrust/paranoia about "there are some people here who want things to go the other way". He expressed trust in his nurse, me and his . I offered for nurse and I to step out so he could have a private conversation with his but pt did not seem to want that. He was allowed to express himself and in the end was agreeable to me placing his O2 back on. RN in room with pt/ when I left. Report called to . I will revisit tomorrow. I would like to address code/advanced care plans with him when he is adequately oxygenated and clear of mind.
--- NOTE | 2021-10-04 17:37 | NUR ---
SHIFT SUMMARY PT IS SLEEPING UPRIGHT IN BED. HE HAS BEEN LETHARGIC, MORE CONFUSED, AND HALLUCINATING TODAY. DR BELIEVES IT IS RELATED TO PT REFUSING TO WEAR CPAP AT NIGHT. PT WAS ON 3L OF O2 THIS AM AND WAS COMPLAINT FOR A SHORT TIME. PALLIATIVE CAME AND SPOKE TO HIM REGARDING HIS WISHES TO NOT USE O2 OR CPAP WITH SUCH LOW O2 SATS. PT WAS CONFUSED, BUT REPORTED THAT HE DID NOT WANT TO AND HIS CONVINCED HIM TO WEAR HIS CPAP MACHINE. HE IS CURRENTLY WEARING IT AND SATTING 95%. HE IS STILL LETHARGIC AND HARD TO ROUSE FORM A DEEP SLEEP. HE WAS MILDY COMBATIVE EARLIER WHEN DISCUSSING WEARING THE MASK, BUT HAS SINCE CALMED DOWN AND IS COOPERATIVE. WILL CONTINUTE TO MONITOR AND WILL PASS ON INFORMATION TO PERSONAL FINANCIAL COUNSELOR RN.
--- NOTE | 2021-10-04 20:11 | NUR ---
PATIENT CONTINUES TO BE LETHARGIC, HOWEVER, HE IS ALSO REFUSING CPAP, AND WHEN MASK WAS TIGHTENED TO FIT BETTER, PATIENT JUST DISCONNECTED THE HOSE. 02 WAS THEN PLACED IN HIS MOUTH AT 6 LITERS PER NC. SAT INCREASED TO 92-100 BEFORE PULLING IT OFF. SPOKE WITH OVER OUR CONCERNS. SHE IS IN AGREEMENT THAT WE NEED TO FIND A WAY TO KEEP HIM OXYGENATED. DISCUSSED POSSIBLE OPTIONS SHE IS NOT ABLE TO BRING IN HIS CPAP OR STAY ALL NIGHT WITH HIM. PT. STILL REFUSING IV. WRIST RESTRAINTS WOULD BE A LAST RESORT, BUT SHE AGREED THAT IF THIS WAS THE ONLY WAY TO KEEP HIM SAFE, SHE IS VERY SUPPORTIVE
--- NOTE | 2021-10-05 01:15 | NUR ---
PATIENT RESTING IN BED WITH 02 AT 5 LITERS NC IN MOUTH. SPOT SATURATIONS HAVE REMAINED IN THE MID 90'S. STILL REFUSING CPAP. TELE IS AFIB VARYING FROM 40'S TO 80'S WHETHER PATIENT IS AWAKE OR SLEEPING.
[2021-10-05 04:34] LABS: Hematocrit 39.4 % (37.0-53.0); Hemoglobin 12.3 g/dL (13.5-17.5)
[2021-10-05 04:34] LABS: Base Excess Venous 5.3 mmol/L; Bicarbonate Venous 28.3 mmol/L (24.0-30.0); PO2 Venous 80.9 mmHg (38-42); pH Blood Venous 7.41 (7.34-7.37)
[2021-10-05 04:53] LABS: Albumin, Blood 2.6 g/dL (3.4-5.0); Anion Gap 5 mmol/L (6-16); Blood Urea Nitrogen 86 mg/dL (8-24); Bun/Creatinine Ratio 24.8 (12.0-20.0); CO2, Blood 31 mmol/L (21-32); Calcium, Blood 9.4 mg/dL (8.5-10.1); Chloride, Blood 107 mmol/L (98-108); Creatinine, Blood 3.47 mg/dL (0.60-1.20); Glomerular Filtration Rate 17 (60-); Glucose, Blood 135 mg/dL (70-99); Phosphorus, Blood 4.4 mg/dL (2.5-4.9); Potassium, Blood 4.1 mmol/L (3.5-5.5); Sodium, Blood 143 mmol/L (136-145)
--- NOTE | 2021-10-05 13:03 | NUR ---
Case conferenced with pt's bedside RN, and Dialysis unit RN after review of EMR. Plan to call to discuss pt's hx, plan of care, advanced care planning and code status. Pt has cont to experience significant, increasing confusion, delusions, paranoia, turning to agitation and combativeness in the past 24 hours. Will ask if this has occured before with hospital stays or at home. Pt does not have a hx of dementia.
--- NOTE | 2021-10-05 14:25 | NUR ---
Case conferenced with RN again. She had just updated pt's , who is electing not to come in to visit today for fear of agitating pt further if he is wanting to go home. Additional information gathered from RN and I attempted to call as planned. I was unable to reach her by phone and their was no VM available to leave a message. I will cont to try later today and tomorrow to discuss code status, barriers to care, plan of care and advanced care planning.
--- NOTE | 2021-10-05 14:55 | NUR ---
Multiple attempts to reach unsuccessfully at home or cell phone to give an update on declining respiratory and mental status. I did reach Grandson,Alberto, who will call his mom, who is currently with his Grandma-pt's . 's cell with VM is [phone]. VM left for her also. Home # [phone] does not have VM available. Nurse to call Dr with update on changes noted.
--- NOTE | 2021-10-05 15:16 | NUR ---
Change in Code status per 's request and VO obtained from . returned call. Updated her on concerns for pt's declining resp status, increased agitation and combativeness and plan for further w/u. states pt has a POLST and AD at home and that he does not want any life support but did want CPR and also checked "comfort measures only". Discussed oposing goals in pt's choices and that we could not do CPR without life support for f/u care. requests that we cont to try to resolve current issues but requests DNR. Plan made with her to further discuss goals of care and advanced care planning once more diagnostic data/results known. Report to charge accounts audit clerk and Dr. PERDUE obtained for DNR status. to order CT of head. iron launder operator requesting ABG to check for rising CO2 level also. Pt will need to be sedated for testing. RN plans to employ CPAP to manage resp status while pt is sedated or sleeping. verbalized understanding that if pt's status cont to decline as it has over the past 24 hours that his prognosis may be guarded or grim. She states pt has not been diagnosed with dementia and that there is strong family hx of dementia, including his dad. She verbalizes that his chronic health issues have impaired his QOL for some time but that he has been clear headed for the most part prior to this hospital stay.
--- NOTE | 2021-10-05 18:24 | NUR ---
SHIFT SUMMARY PT HAS BEEN AGITATED, CONFUSED AND VIOLENT FOR MOST OF THE DAY. PLACED IN BILATERAL SOFT CUFFS TO PREVENT PT FROM PULLING DIALYSIS CATHETER, NASAL CANULA, AND TELEMETRY. PT CONTINUED TO BE AGGRESSIVE WHILE IN DIALYSIS AND I WAS CALLED DOWN TO MEDICATE HIM SO THEY COULD CONTINUE TREATMENT. HE CONTINUE HIS AGISTATED BEHAVIOR UP UNTIL HE WAS GIVEN MEDICATION TO KEEP HIM CALM BEFORE HIS HEAD CT. PT REMAINED SLEEPING IN HIS ROOM UNTIL FINAL GLUCOSE CHECKS AROUND 1700. HE WAS MEDICATED FOR HYPOGLYCEMIA TWICE HIS FIRST BEING 42 HIS SECOND BEING 46. ISSUE WAS RESOLVED WITH A BLOOD SUGAR OF 95. WILL CONTINUE TO MONITOR.
--- NOTE | 2021-10-05 20:32 | NUR ---
PATIENT CBG 76 AT 1940. CALLS X2 PLACED TO HOSPITALIST. GOLF CLUB WEIGHTER AWARE. AWAITING RETURN CALL FOR ORDER FOR D50/HYPOGLYCEMIA PROTOCOL. PATIENT REFUSING PO MEDS. EXTREMELY CONFUSED. D50 GIVEN X2 EARLIER THIS AFTERNOON FOR CBG'S OF 42 AND 46.
--- NOTE | 2021-10-05 20:47 | NUR ---
CALL RECEIVED. ORDER FOR D5NS AT 50ML/HR GIVEN AND IMPLEMENTED. WILL CONTINUE FREQUENT MONITORING OF BLOOD GLUCOSE
--- NOTE | 2021-10-05 22:51 | NUR ---
CBG AT 2220 WAS 56, PATIENT APPEARS TO BE MORE COGNIZANT OF HIS SURROUNDINGS, EVEN ASKED IF HIS WAS MAD AT HIM FOR HOW HE ACTED TODAY. ALERT ENOUGH TO TAKE FLUID AT THIS MOMENT, FULL CARTON OF CLEAR ENSURE (52 CARBS) WAS TAKEN BY PATIENT WITH THIS RN'S ASSISTANCE. WILL RECHECK CBG IN 15 MINUTES.
--- NOTE | 2021-10-06 05:15 | NUR ---
PATIENT REMAINS IN RESTRAINTS OVERNIGHT. HE WAS TOO LETHARGIC TO SAFELY SWALLOW PILLS AT HS, AND TOO AGITATED PRIOR TO AND AFTER. BLOOD SUGARS FOR THE SHIFT RANGED FROM 76 AT 1940 TO 50 AT HS TO 80 AT 0430. D5NS STILL RUNNING AT 50 ML HR. AT ONE POINT, SATISH WAS ABLE TO DRINK A CLEAR ENSURE WITH 52 GRAMS CARBS, AND 30 MINUTES LATER, HIS CBG WAS 130. HE WAS INCONT OF URINE ONCE, AND JUST AFTER, HE VOIDED 350 ML INTO THE URINAL WITH STAFF ASSIST. STILL HALLUCINATING. STILL RUBBING LEFT HEEL ON THE BED AND PUSHING ON RAILS. 5L NASAL CANNULA MID 90'S
[2021-10-06 05:20] LABS: Hematocrit 39.3 % (37.0-53.0); Hemoglobin 12.2 g/dL (13.5-17.5)
[2021-10-06 05:38] LABS: Albumin, Blood 2.5 g/dL (3.4-5.0); Anion Gap 7 mmol/L (6-16); Blood Urea Nitrogen 67 mg/dL (8-24); Bun/Creatinine Ratio 22.6 (12.0-20.0); CO2, Blood 29 mmol/L (21-32); Chloride, Blood 110 mmol/L (98-108); Creatinine, Blood 2.96 mg/dL (0.60-1.20); Glomerular Filtration Rate 21 (60-); Glucose, Blood 87 mg/dL (70-99); Magnesium, Blood 1.9 mg/dL (1.6-2.4); Phosphorus, Blood 4.3 mg/dL (2.5-4.9); Potassium, Blood 3.8 mmol/L (3.5-5.5); Sodium, Blood 146 mmol/L (136-145)
--- NOTE | 2021-10-06 14:36 | NUR ---
Case conference with pt's RN this am and review of EMR. Pt less confused and not combative today. plans to visit and pt stated to RN that he did not know what happened yesterday but he had some recollection of "being bad" and wanted to apologize to staff and . CT of head negative for acute process. Microvascular disease noted and may be contributing to confusion per PN. Bld glucose levels were low and treated yesterday also. I will try to connect with as planned when she visits today.
--- NOTE | 2021-10-06 16:25 | NUR ---
[facility] visit with and granddaughter visiting. 's mobility is greatly impaired and she reports she hurt her back very badly trying to care for pt the week before admission. She reiterates today that he does not want life support and only wants comfort care measures. Pt remains confused but less agitated today. He has some paranoia about "deyvi on around here". I reviewed the results of the CT of head with when she asked and she again reported pt's family hx of dementia. She states pt had started showing s/s of confusion at home and she hoped dialysis would clear that. states she has had multiple prev back surgeries. She is clear that she can no longer care for pt at home and states he has to go to a detention on d/c. She states she knows he wants to come home but she does not believe that will ever happen again. I left a message for Zenobia in [facility] to update on 's request for assist with buttermilk drier operator placement. states pt is a and that he has medicare but no medicaid. I reviewed medicare's criteria for detention coverage and that they do not cover retirement care. is hopeful that [facility] will have a bed in their "detention" or will pay for one. I asked if pt would want to continue with dialysis if his confusion was a new normal for him and if he would be residing in a LTC facility for the remainder of his life. She said at least three times, "He only wants comfort care and no life support". I gently educated on active tx for renal failure and comfort care were not normally compatible and that dialysis is a prolongation of life in replacing kidney function and a form of life support. Pt's prognosis would be quite limited without the dialysis. wanted me to do a new POLST stating comfort measures only. I asked that she give pt some time to clear and discuss goals of care and wishes with other family since dialysis wouldn't be included in comfort care. agreeable and we planned to discuss again tomorrow.
--- NOTE | 2021-10-06 17:50 | NUR ---
SHIFT SUMMARY PTS MENTATION HAS GREATLY IMPROVED TODAY. RESTRAINTS WERE ABLE TO BE REMOVED THIS AFTERNOON AND PT AGREED TO LEAVE LINES HYUN AND TO NOT THREATEN STAFF OR HIMSELF. HE HE EATEN ALL HIS MEALS AND HAS BEEN ABLE REGAIN CONTROL OF HIS BLOOD SUGAR AGAIN. AND DAUGHTER CAME AND BROUGHT HIS CPAP FROM HOME AND HE IS MORE COMFORTABLE USING IT AGAIN. PALLIATIVE AND WERE BOTH ABLE TO SPEAK TO HIM TODAY AND SEE THE IMRPOVEMENT IN HIS MENTAL STATUS. WILL CONTINEU TO MONITOR.
--- NOTE | 2021-10-06 23:24 | NUR ---
DR HERNADEZ called about PT becoming agitated & removing tele monitor repeatedly. Notify day MD about possible DC of tele to decrease agitation
--- NOTE | 2021-10-07 04:46 | NUR ---
PT is retired [employer] [place] with most of service in [place] . PT unsure who his is but recognizes Granddtrs name. PT with IDDM, ESRD with perm cath placement rt upper chest wall for hemodialysis on 09/26/21. PT had dialysis 09/04/21 & reportedly became very combative while recieving dialysis. DNR status, PT was on tele monitor & he repeatedly removed monitor. informed & surveillance monitor updated. Order to doc refusals & notify day provider of aggitation with monitor. PT has own cpap which has nasal mask & he allowed cpap use intermittantly. He is on oximetry & sats variable can be 93% room air the 83 with EDUIN. Recovers quickly & CPAP helps maintain sat greater than 92%. PT did attempt to climb out of bed when awake but slep well after hs seroquel.Awaiting discharge with need for dialysis chair. Drank 1 glycerna, void x 1 in urinal dark claribel urine.
[2021-10-07 05:33] LABS: Hematocrit 38.5 % (37.0-53.0)
[2021-10-07 05:48] LABS: Albumin, Blood 2.4 g/dL (3.4-5.0); Anion Gap 6 mmol/L (6-16); Blood Urea Nitrogen 80 mg/dL (8-24); Bun/Creatinine Ratio 25.3 (12.0-20.0); CO2, Blood 28 mmol/L (21-32); Calcium, Blood 9.3 mg/dL (8.5-10.1); Chloride, Blood 109 mmol/L (98-108); Creatinine, Blood 3.16 mg/dL (0.60-1.20); Glomerular Filtration Rate 19 (60-); Glucose, Blood 223 mg/dL (70-99); Phosphorus, Blood 4.3 mg/dL (2.5-4.9); Potassium, Blood 4.3 mmol/L (3.5-5.5); Sodium, Blood 143 mmol/L (136-145)
--- NOTE | 2021-10-07 15:01 | NUR ---
Case conference with pt's RN. has not been in yet today. POLST completed, reviewed with RN and put at door way for Dr signature per 's request yesterday. Advanced care planning and quality of life conversations to continue when possible. Pt's confusion remains persistent and he is frequently pulling telemetry pads off, pulling at O2 and pulling CPAP off per RN notes and update from RN. He was asleep both times I came by and I did not disturb him. No visitors at this time.
--- NOTE | 2021-10-07 16:35 | NUR ---
Met with outside of pt's room, while staff cleaning pt up after large episode of diarrhea. is sitting in a wheel chair. tells me that she has contacted multiple family members since we last spoke yesterdy and that she wants us, and family in support of transitioning pt to comfort care at this time. I clarified if they also wanted dialysis discontinued and the stated they did not want any further dialysis. She stated she could see how miserable pt was, "out of his mind" and that he would not want to continue if he was clear and understood he could not come back home and that his life would consist of living in a facility and doing dialysis numerous times per week. We reviewed this further with plan to contact Dr and obtain orders for comfort care, which I did. I updated pt's RN and screeners so multiple family members would be allowed in to visit. Hospice order entered in case pt is able to be discharged to a facility with hospice support or the [place] hospice unit. very appreciative of the support and assist t/o this very difficult past week, with her experiencing a huge decline physically and mentally. [facility] to cont to follow for s/s management and support to pt//family and staff.
--- NOTE | 2021-10-07 17:21 | NUR ---
PT AOX3 AND COOPERATIVE OF CARE TODAY. PT WAS DOWN TO DIALYSIS TODAY AND LATER CAME BACK TO ROOM. PT HAD MULTIPLE LOOSE BOWEL MOVEMENTS AND DR UMANA WAS NOTIFIED AND ADDED MEDICATION TO EMAR. PT LATER WAS MOVED TO COMFORT CARE AND IS COMFORTABLE AT THIS TIME. CALL LIGHT IS WITHIN REACH WILL CONTINUE TO MONITOR.
--- NOTE | 2021-10-08 01:01 | NUR ---
PT denies pain or unmet needs, started on comfort care yesterday. PT has moderate confusion but no agression. [employer] [place] retired doesn't know Wifes name & begins discussion about his Parents passing away. Asks what will happen to rt chest dialysis cath? Discussed Hospice referral. PT says he usually can move himself on & off toilet transfer from without appliance or prothesis for RT BKA. Obese, needs 2 assist & cues to roll side to side to change depends.
--- NOTE | 2021-10-08 06:05 | NUR ---
calm cooperative , denies unmet needs. Drank supplement earlier & used urinal x 2 thsi shift. Room air PT declined CPAP, has his own cpap set up at bedside.
--- NOTE | 2021-10-08 18:23 | NUR ---
PT AOX3 AND COOPERATIVE OF CARE. PT HAS BEEN COMFORTABLE AND SLEEPING MOST OF THE DAY. PT DID GET A LITTLE UPSET WHEN HIS TOLD HIM HE WOULD NOT BE GOING HOME. PT TREATED FOR ANXIETY PER EMAR AND THIS WAS EFFECTIVE. HE WAS MUCH HAPPIER LATER IN THE DAY AND WAS EVEN LAUGHING. PT TURNED EVERY COUPLE HOURS AND IS INCONTENT OF URINE AND BOWEL. NO DISTRESS NOTED AT THIS TIME.
--- NOTE | 2021-10-09 01:29 | NUR ---
oxygen applied for dyspnea PT declines CPAP
--- NOTE | 2021-10-09 06:42 | NUR ---
PT to Dc home on Wednesday with [facility]. PT reportedly had agitation on day shift medicated for anxiety. Medicted x 1 for air hunger EDUIN with helpful effect
--- NOTE | 2021-10-09 09:30 | NUR ---
Comfort care visit. Fredy is currently sleeping. He appears to be comfortable at this time. Spoke with nursing who reports no concerns at this time. Plan is for pt to discharge to the [facility] at the [place] on Wednesday10/10/21. Did not disturb patient during this visit.
--- NOTE | 2021-10-09 17:49 | NUR ---
SHIFT SUMMARY PATIENT STARTED THE SHIFT TRYING TO GET OUT OF BED FREQUENTLY. MEDICATED WITH ATIVAN FOR ANXIETY AND PATIENT WISHING TO SLEEP. PATIENT HAS BEEN RESTING FOR MOST OF THE DAY WITH NO ISSUES. NO ACUTE EVENTS THIS SHIFT. CALL LIGHT IN PLACE. BED IN LOWEST POSITION. WILL MONITOR UNTIL CUPOLA OPERATOR.
--- NOTE | 2021-10-09 17:56 | NUR ---
SHIFT SUMMARY PATIENT IS ON COMFORT CARE. COMFORT CARE MEASURES DONE Q2. PATIENT HAS BEEN COMFORTABLE AND SLEEPING MOST OF THE SHIFT. PATIENT ONLY GETS AGITATED WHEN CHANGING BRIEF AND BED CHANGES, OTHERWISE RESTING PEACEFULLY. PATIENT HAS NOT NEEDED ANY MEDICATION FOR ANXIETY, PAIN OR ANY OTHER NEEDS THIS SHIFT. FAMILY VISITED FOR A LITTLE WHILE AND SAT AND TALKED WITH THEM TO PROVIDE THERAPEUTIC COMMUNICATION TO FAMILY AND PATIENT. WILL MONITOR UNTIL SHIFT CHANGE.
[2021-10-10 02:12] LABS: SARS-Cov-2 (COVID-19) PCR, MMC NEGATIVE (NEGATIVE)
--- NOTE | 2021-10-10 04:48 | NUR ---
SHIFT SUMMARY PT IS DISCHARGING TO [facility] THIS AM. NO ACUTE CHANGES ON THIS SHIFT. COOPERATIVE WITH CARE. PT HAS NO NEED FOR ANXIETY MEDS ON THIS SHIFT. ADLS PROVIDED, SAFETY MEASURES IN PLACE. WILL CONTINUE TO MONITOR.
[2021-10-10] MEDS ORDERED: ATROPINE SULFATE2 M1 SL (08:36)
[2021-10-10] MEDS ORDERED: MORP20L SL (08:44)
[2021-10-10] MEDS ORDERED: Ativan1 MG PO (08:44)
[2021-10-10] MEDS ORDERED: TRANSDERM-SCOP1 EAC1 TD (08:45)
--- NOTE | 2021-10-10 11:28 | NUR ---
SHIFT SUMMARY PATIENT IS ALERT AND ORIENTED X1-2. PATIENT HAS BEEN MORE ALERT TODAY VERSUS PREVIOUS SHIFTS. NO ACUTE EVENTS THIS SHIFT. PATIENT WAS TRANSFERRED TO [facility] BY TRANSPORT. ALL BELONGS WERE TRANSFERRED WITH PATIENT.
== END 2021-10-10 10:30 | DRG 673 ==
LOC: ER 14:59 → MEDS 15:00 → ENPENDDIS 10-10 09:20 → MEDS 10-10 10:30
PROVIDERS: Emergency Medicine; Family Medicine; Internal Medicine; Internal Medicine Nephrology; Physician Assistant; ADMIT Internal Medicine
PROC: 3E02340 Introduction of Influenza Vaccine into Muscle, Percutaneous Approach (ICD-10-PCS; 2021-09-25)
PROC: 02HV33Z Insertion of Infusion Device into Superior Vena Cava, Percutaneous Approach (ICD-10-PCS; principal; 2021-09-26)
PROC: B518YZA Fluoroscopy of Superior Vena Cava using Other Contrast, Guidance (ICD-10-PCS; 2021-09-26)
PROC: 5A1D70Z Performance of Urinary Filtration, Intermittent, Less than 6 Hours Per Day (ICD-10-PCS; 2021-09-26)
PROC: 0JH63XZ Insertion of Tunneled Vascular Access Device into Chest Subcutaneous Tissue and Fascia, Percutaneous Approach (ICD-10-PCS; 2021-09-26)
PROC: B548ZZA Ultrasonography of Superior Vena Cava, Guidance (ICD-10-PCS; 2021-09-26)
DX: N17.9 Acute kidney failure, unspecified (principal); G92.8 Other toxic encephalopathy; E87.2 Acidosis; I48.21 Permanent atrial fibrillation; E87.0 Hyperosmolality and hypernatremia; N18.6 End stage renal disease; E11.22 Type 2 diabetes mellitus with diabetic chronic kidney disease; Z20.822 Contact with and (suspected) exposure to COVID-19; Z99.2 Dependence on renal dialysis; I48.91 Unspecified atrial fibrillation; G47.33 Obstructive sleep apnea (adult) (pediatric); Z51.5 Encounter for palliative care; Z90.49 Acquired absence of other specified parts of digestive tract; Z89.511 Acquired absence of right leg below knee; Z79.899 Other long term (current) drug therapy; I48.0 Paroxysmal atrial fibrillation; I25.10 Atherosclerotic heart disease of native coronary artery without angina pectoris; D64.9 Anemia, unspecified; E88.09 Other disorders of plasma-protein metabolism, not elsewhere classified; E87.5 Hyperkalemia; Z23 Encounter for immunization
CPT/HCPCS: 0241U; 36415; 36558; 70450; 71045; 76770; 76937; 77001; 80053; 80069; 80074; 82803; 82947; 83735; 83880; 84132; 84443; 84484; 85014; 85018; 85025; 86317; 94660; 94760; 94762; 99152; 99153; 99285-25; A9270; C1750; C1769; C1894; G0378; J1644; J1815; J2060; J2250; J3010; J7040; J7042; U0004